=== PATIENT | female | born 1955 | race Caucasian/White ===

== ENCOUNTER 2016-06-10 19:55 | Emergency (ER) | payer BC ==
[~2016-06-10] VITALS: Ht 154.9 cm; Wt 59.0 kg
[2016-06-10 19:59] VITALS: BP 191/83; PULSE 71; RESP 18; O2SAT 100
--- NOTE | 2016-06-10 21:14 | PD ---
HPI Chief Complaint: Back/ Neck Pain or Injury Time Seen by Provider: 21:14 Travel History International Travel<30 days: No Contact w/Intl Traveler<30days: No Traveled to known affect area: No History of Present Illness HPI 61-year-old female with history of breast cancer in remission for 6 years and cervical fusion presents to emergency department for evaluation. Patient states "I think I may have had a heart attack." Patient reports chronic recurrent cervical radicular pain that radiates into her left shoulder. She states yesterday she had a pain similar to this but it was subscapular on the left, sharp and stabbing. It lasted longer than her typical pain and was accompanied with diaphoresis. Patient states she attempted ice which made it worse. Patient had another episode today and states the pain was so bad she couldn't even get herself help. She was bent over and diaphoretic secondary to the pain. No fever or chills. No cough or chest congestion. States that during that she felt as though she was short of breath and maybe having a little bit of anxiety. Denies history of CO. No other symptoms reported this time. PFSH Past Medical History Hx Anticoagulant Therapy: Yes (ASA) Cardiovascular Problems: Yes (WPW HTN) Chemotherapy: Yes (5 YRS AGO) Social History Alcohol Use: Yes Tobacco Use: Yes Allergies-Medications (Allergen,Severity, Reaction): Coded Allergies: Adhesives (Verified Allergy, Mild, BLISTERS, 06/10/16) Latex (Verified Allergy, Mild, BLISTERS, 06/10/16) Penicillin (Verified Allergy, Mild, HIVES, 06/10/16) Uncoded Allergies: PEROXIDE (Allergy, Mild, BLISTERS, 06/10/16) Reported Meds & Prescriptions Reported Meds & Active Scripts Active Reported Trazodone (Trazodone HCl) 50 Mg Tab 50 Mg PO HS Atenolol 50 Mg Tab 50 Mg PO DAILY Review of Systems Except as stated in HPI: all other systems reviewed are Neg Physical Exam Narrative GENERAL: Well-nourished female patient, ambulatory no acute distress SKIN: Warm and dry. HEAD: Atraumatic. Normocephalic. EYES: Pupils equal and round. No scleral icterus. No injection or drainage. ENT: No nasal bleeding or discharge. Mucous membranes pink and moist. NECK: Trachea midline. No JVD. CARDIOVASCULAR: Regular rate and rhythm. No murmur appreciated. RESPIRATORY: No accessory muscle use. Clear to auscultation. Breath sounds equal bilaterally. GASTROINTESTINAL: Abdomen soft, non-tender, nondistended. Hepatic and splenic margins not palpable. MUSCULOSKELETAL: No obvious deformities. No clubbing. No cyanosis. No edema. NEUROLOGICAL: Awake and alert. No obvious cranial nerve deficits. Motor grossly within normal limits. Normal speech. Data Data Last Documented VS Vital Signs Date Time Temp Pulse Resp B/P Pulse Ox O2 Delivery O2 Flow Rate FiO2 06/11/16 00:10 98 Room Air 06/10/16 21:33 67 14 142/77 Orders Electrocardiogram (06/10/16 20:01) Basic Metabolic Panel (Bmp) (06/10/16 21:13) Ckmb (Isoenzyme) Profile (06/10/16 21:13) Complete Blood Count With Diff (06/10/16 21:13) D-Dimer (06/10/16 21:13) Magnesium (Mg) (06/10/16 21:13) Prothrombin Time / Inr (Pt) (06/10/16 21:13) Act Partial Throm Time (Ptt) (06/10/16 21:13) Troponin I (06/10/16 21:13) Lipase (06/10/16 21:13) Chest, Single Ap (06/10/16 21:13) Ecg Monitoring (06/10/16 21:13) Bilateral Bp Monitoring (06/10/16 21:13) Iv Access Insert/Monitor (06/10/16 21:13) Oximetry (06/10/16 21:13) Oxygen Administration (06/10/16 21:13) Sodium Chloride 0.9% Flush (Ns Flush) (06/10/16 21:15) Sacrum And Coccyx (06/10/16 ) Labs Laboratory Tests Test 06/10/16 21:30 White Blood Count 10.9 TH/MM3 Red Blood Count 4.91 MIL/MM3 Hemoglobin 16.0 GM/DL Hematocrit 46.6 % Mean Corpuscular Volume 94.9 FL Mean Corpuscular Hemoglobin 32.7 PG Mean Corpuscular Hemoglobin 34.5 % Concent Red Cell Distribution Width 13.1 % Platelet Count 187 TH/MM3 Mean Platelet Volume 7.7 FL Neutrophils (%) (Auto) 77.4 % Lymphocytes (%) (Auto) 16.6 % Monocytes (%) (Auto) 4.5 % Eosinophils (%) (Auto) 1.1 % Basophils (%) (Auto) 0.4 % Neutrophils # (Auto) 8.4 TH/MM3 Lymphocytes # (Auto) 1.8 TH/MM3 Monocytes # (Auto) 0.5 TH/MM3 Eosinophils # (Auto) 0.1 TH/MM3 Basophils # (Auto) 0.0 TH/MM3 CBC Comment DIFF FINAL Differential Comment Prothrombin Time 11.4 SEC Prothromb Time International 1.0 RATIO Ratio Activated Partial 27.5 SEC Thromboplast Time D-Dimer Quantitative (PE/DVT) 0.33 MG/L FEU Sodium Level 142 MEQ/L Potassium Level 4.2 MEQ/L Chloride Level 105 MEQ/L Carbon Dioxide Level 29.3 MEQ/L Anion Gap 8 MEQ/L Blood Urea Nitrogen 20 MG/DL Creatinine 0.98 MG/DL Estimat Glomerular Filtration 58 ML/MIN Rate Random Glucose 112 MG/DL Calcium Level 9.1 MG/DL Magnesium Level 2.3 MG/DL Total Creatine Kinase 52 U/L Troponin I 0.04 NG/ML Lipase 103 U/L [facility] Medical Decision Making Medical Screen Exam Complete: Yes Emergency Medical Condition: Yes Medical Record Reviewed: Yes Differential Diagnosis ACS versus dissection versus muscle strain versus spasm versus radicular pain Narrative Course 61 year-old female presents to the emergency department for evaluation. Patient appears without distress. She is refusing IV access initially. After discussing with patient the possibility of dissection versus CO and reminding her of her concern that she was having a heart attack, the patient does allow IV access. Pt is signed out to Dr. elizondo who will assume care. Diagnosis Primary Impression: Chest pain Qualified Code: R07.9 - Chest pain, unspecified type Condition: Stable Yuridia Salcedo KATRIN Jun 10, 2016 21:14
[2016-06-10] MEDS ORDERED: SODIUM CHLORIDE 0.9% FLUSH 5 ML FLUSH IVF PRN (21:15)
[2016-06-10 21:33] VITALS: BP 142/77; PULSE 67; RESP 14; O2SAT 99
[2016-06-10] MEDS ORDERED: TRAZ50TA12 PO (21:43)
[2016-06-10] MEDS ORDERED: ATEN50TA PO (21:43)
--- NOTE | 2016-06-10 21:55 | RADRPT ---
EXAM DATE/TIME: 06/10/2016 21:19 [facility] COMPARISON: No previous studies available for comparison. INDICATIONS : Chest pain for 2 days. MEDICAL HISTORY : Carcinoma, breast. SURGICAL HISTORY : Mastectomy, bilateral. ENCOUNTER: Initial ACUITY: 2 days PAIN SCORE: 6/10 LOCATION: Bilateral chest FINDINGS: A single view of the chest demonstrates the lungs to be symmetrically aerated without evidence of mas s, infiltrate or effusion. The cardiomediastinal contours are unremarkable. Osseous structures are intact. CONCLUSION: No acute disease. Peter Trevizo MD on June 10, 2016 at 21:53 Board Certified Radiologist. This report was verified electronically.
[2016-06-10 22:04] LABS: AUTOMATED NEUTROPHIL # 8.4 TH/MM3 (1.8-7.7); BASOPHIL % 0.4 % (0.0-2.0); EOSINOPHIL # 0.1 TH/MM3 (0-0.4); EOSINOPHIL % 1.1 % (0.0-4.0); HEMATOCRIT 46.6 % (35.0-46.0); HEMO FLAGS DIFF FINAL; LYMPH % 16.6 % (9.0-44.0); LYMPHOCYTE # 1.8 TH/MM3 (1.0-4.8); MEAN CELL VOLUME 94.9 FL (80.0-100.0); MEAN CORPUSCULAR HEMOGLOBIN 32.7 PG (27.0-34.0); MEAN CORPUSCULAR HGB CONC 34.5 % (32.0-36.0); MONO % 4.5 % (0.0-8.0); NEUT % 77.4 % (16.0-70.0); PLATELET COUNT 187 TH/MM3 (150-450); RED BLOOD COUNT 4.91 MIL/MM3 (4.00-5.30); RED CELL DISTRIBUTION WIDTH 13.1 % (11.6-17.2); WHITE BLOOD COUNT 10.9 TH/MM3 (4.0-11.0)
--- NOTE | 2016-06-10 22:09 | RADRPT ---
EXAM DATE/TIME: 06/10/2016 21:52 [facility] COMPARISON: No previous studies available for comparison. INDICATIONS : Fall. MEDICAL HISTORY : None. SURGICAL HISTORY : None. ENCOUNTER: Initial ACUITY: 1 day PAIN SCORE: 5/10 LOCATION: Bilateral lower back FINDINGS: Two-view examination of the sacrum and coccyx demonstrates no evidence of fracture or malalignment. The sacral ala and foramina appear symmetric and intact. The coccyx appears unremarkable. The preve rtebral soft tissues are within normal limits. CONCLUSION: No acute fracture. Reinier Anderson MD on June 10, 2016 at 22:05 Board Certified Radiologist. This report was verified electronically.
[2016-06-10 22:19] LABS: APTT (PATIENT) 27.5 SEC (24.3-30.1); PROTHROMBIN TIME - PATIENT 11.4 SEC (9.8-11.6)
[2016-06-10 22:25] LABS: BICARBONATE 29.3 MEQ/L (21.0-32.0); MAGNESIUM 2.3 MG/DL (1.5-2.5); POTASSIUM 4.2 MEQ/L (3.5-5.1)
[2016-06-11 00:10] VITALS: O2SAT 98
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
--- NOTE | 2016-06-11 20:02 | EKG ---
Date Performed: 06/10/2016 Time Performed: 20:18:35 PTAGE: 61 years EKG: Sinus rhythm NORMAL ECG NO PREVIOUS TRACING DOCTOR: Camila Nunez Interpretating Date/Time 06/11/2016 20:00:24
== END 2016-06-11 00:22 | disposition left against medical advice (07) ==
LOC: NEPE 19:55
DX: R07.9 Chest pain, unspecified (principal); M53.3 Sacrococcygeal disorders, not elsewhere classified; M54.2 Cervicalgia; G89.29 Other chronic pain
CPT/HCPCS: 71010; 72220; 80048; 82550; 83690; 83735; 84484; 85025; 85379; 85610; 85730; 93005